=== PATIENT | male | born 1965 ===

== ENCOUNTER 2017-05-09 22:13 | Emergency (ER) | payer OTHER, SELFPAY ==
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
[2017-05-09] MEDS ORDERED: Ibuprofen 800 MG TAB ONE (23:55)
[2017-05-10] MEDS ORDERED: Bacitracin Zinc 1 Packet ONE (00:48)
== END 2017-05-09 23:37 | disposition home or self-care (01) ==
LOC: NAV ERS 22:13
DX: S50.812A Abrasion of left forearm, initial encounter (principal); F10.129 Alcohol abuse with intoxication, unspecified; M54.2 Cervicalgia; I10 Essential (primary) hypertension; Z79.899 Other long term (current) drug therapy; V49.9XXA Car occupant (driver) (passenger) injured in unspecified traffic accident, initial encounter
CPT/HCPCS: 70450; 72125; 72131